=== PATIENT | female | born 1955 | race Caucasian/White ===

== ENCOUNTER → 2020-02-17 14:28 | Outpatient (BNVA) | payer MEDICARE, MEDICAID, SELFPAY | PROVIDERS: PCP Family Medicine; Referring Provider Family Medicine; Visit Provider Hospitalist | DX: J44.9 Chronic obstructive pulmonary disease, unspecified (principal); G47.33 Obstructive sleep apnea (adult) (pediatric); R05 Cough; Z99.89 Dependence on other enabling machines and devices | CPT/HCPCS: 99202; 99212 ==

== ENCOUNTER → 2020-04-27 14:39 | Outpatient (BNVA) | payer MEDICARE, MEDICAID, SELFPAY | PROVIDERS: PCP Family Medicine; Visit Provider Hospitalist | DX: J44.9 Chronic obstructive pulmonary disease, unspecified (principal); G47.33 Obstructive sleep apnea (adult) (pediatric); Z87.891 Personal history of nicotine dependence | CPT/HCPCS: 99212 ==

== ENCOUNTER → 2020-08-23 15:03 | Outpatient (BNVA) | payer MEDICARE, MEDICAID, SELFPAY | PROVIDERS: PCP Family Medicine; Visit Provider Hospitalist | DX: J45.40 Moderate persistent asthma, uncomplicated (principal); G47.33 Obstructive sleep apnea (adult) (pediatric); J44.9 Chronic obstructive pulmonary disease, unspecified | CPT/HCPCS: 99212 ==

== ENCOUNTER → 2020-11-01 15:05 | Outpatient (REF) | payer MEDICARE, MEDICAID, SELFPAY | LOC: HO.SL 15:05 | PROVIDERS: PCP Family Medicine; Visit Provider Hospitalist | DX: G47.33 Obstructive sleep apnea (adult) (pediatric) (principal) | CPT/HCPCS: 95806 ==

== ENCOUNTER → 2020-12-14 14:31 | Outpatient (BNVA) | payer MEDICARE, MEDICAID, SELFPAY | PROVIDERS: PCP Family Medicine; Visit Provider Hospitalist | DX: J45.40 Moderate persistent asthma, uncomplicated (principal); J44.9 Chronic obstructive pulmonary disease, unspecified; G47.33 Obstructive sleep apnea (adult) (pediatric) | CPT/HCPCS: 99212 ==

== ENCOUNTER → 2020-12-30 19:21 | Outpatient (REF) | payer MEDICARE, MEDICAID, SELFPAY | LOC: HO.SL 19:21 | PROVIDERS: Visit Provider Hospitalist | DX: G47.33 Obstructive sleep apnea (adult) (pediatric) (principal) | CPT/HCPCS: 95810 ==

== ENCOUNTER → 2021-02-15 14:25 | Outpatient (BNVA) | payer MEDICARE, MEDICAID, SELFPAY | PROVIDERS: PCP Family Medicine; Visit Provider Hospitalist | DX: J44.9 Chronic obstructive pulmonary disease, unspecified (principal); G47.33 Obstructive sleep apnea (adult) (pediatric) | CPT/HCPCS: 99212 ==

== ENCOUNTER 2021-03-11 14:05 | Outpatient (REF) | payer MEDICARE, MEDICAID, SELFPAY ==
--- NOTE | 2021-03-11 17:40 | PFT_ITS ---
Forced vital capacity, FEV1, [id number], and MVV are all normal. Post bronchodilator therapy, there is no significant change. Total lung capacity normal. Residual volume is slightly decreased. Diffusion capacity slightly decreased. CONCLUSION: Normal pulmonary function test except for decreased residual volume and slightly decreased diffusion capacity. These are probably related to exogenous obesity. MD BLACK Wilson/JANET / [phone]
== END 2021-03-11 14:06 | disposition home or self-care (01) ==
LOC: HO.RESP 14:05
PROVIDERS: Visit Provider Hospitalist
DX: J44.9 Chronic obstructive pulmonary disease, unspecified (principal); R06.00 Dyspnea, unspecified
CPT/HCPCS: 94060; 94727; 94729

== ENCOUNTER → 2021-05-28 14:33 | Outpatient (BNVA) | payer MEDICARE, MEDICAID, SELFPAY | PROVIDERS: PCP Family Medicine; Visit Provider Hospitalist | DX: J44.9 Chronic obstructive pulmonary disease, unspecified (principal); J45.909 Unspecified asthma, uncomplicated | CPT/HCPCS: 99212 ==

== ENCOUNTER → 2021-08-26 14:45 | Outpatient (BNVA) | payer MEDICARE, MEDICAID, SELFPAY | PROVIDERS: PCP Family Medicine; Visit Provider Hospitalist | DX: J44.9 Chronic obstructive pulmonary disease, unspecified (principal); R05.9 Cough, unspecified | CPT/HCPCS: 99212 ==

== ENCOUNTER → 2022-01-06 14:41 | Outpatient (BNVA) | payer MEDICARE, MEDICAID, SELFPAY | PROVIDERS: PCP Family Medicine; Visit Provider Hospitalist | DX: J44.9 Chronic obstructive pulmonary disease, unspecified (principal); R05.9 Cough, unspecified | CPT/HCPCS: 99212 ==

== ENCOUNTER → 2022-05-12 15:26 | Outpatient (BNVA) | payer MEDICARE, SELFPAY | PROVIDERS: PCP Family Medicine; Visit Provider Hospitalist | DX: J44.9 Chronic obstructive pulmonary disease, unspecified (principal); G47.33 Obstructive sleep apnea (adult) (pediatric); Z79.899 Other long term (current) drug therapy | CPT/HCPCS: 99212 ==

== ENCOUNTER 2022-11-13 15:38 | Outpatient (AMB) | payer MEDICARE, SELFPAY ==
--- NOTE | 2022-11-13 15:43 | A.OFFVIS_ITS ---
Intake Vital Signs 11/13/22 15:46 Height 5 ft 4 in Weight 310 lb BMI 53.2 Pulse 78 Pulse Source Pulse Oximeter Pulse Oximetry (%) 95 Oxygen Delivery Method Room Air Intake Visit Reasons: COPD Community Development Manager Required: No Allergies No Known Allergies Allergy (Verified 11/13/22 15:47) HPI HPI Comments History of Present Illness0 Details The patient is a 66-year-old woman with a known history of asthma, obstructive sleep apnea and morbid obesity. The patient has been having worsening respiratory symptoms with increasing cough chest congestion and wheezing. She has been using her nebulized therapy couple times a day and also continue to use her respiratory therapy as prescribed. Only getting partial resolution or symptoms. She was tested for COVID-19 which was negative. She denies any fevers or chills at this time. This point will go ahead and treat her for underlying asthma exacerbation. The patient also may have a lower respiratory infection such as bronchitis which is likely contributing to her exacerbation. In addition to continues to have daytime drowsiness. Will plan to do a sleep study. Her [place] score is elevated 12/24. She has had sleep apnea in the past. 08/23/2020 the patient is here for pulmonary follow-up visit. She is feeling better from a respiratory status. She has no longer wheezing. She has not required any more prednisone. She has not been using her rescue inhaler more than twice a week. Overall she is doing well. She continues to have daytime drowsiness. Her [place] score still elevated 12/24. She does benefit from CPAP therapy. She was being called to have her sleep study, but, she was concerned about not being vaccinated. Now she is fully vaccinated. 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 Once she gets her sleep study we can review together and then we activate her with a [employer]. The patient has had a diagnosis of sleep apnea for many years. She has been very compliant with the CPAP therapy in the past. 05/12/2022 the patient is here for a pulmonary follow-up visit. The patient is feeling better at this time. She was sick several weeks ago with flu-like symptom. She thought she was going to . She was very weak. She cannot do her activities of daily living. The patient had medications at home but she states that she was in thinking logically and she therefore did not take any medications. She was she is very tired. Slowly but surely the patient did improved. She is now back on a baseline. She continues use her current respiratory therapy. She did not take any prednisone or antibiotics during her episode. She did test negative for COVID-19. She believes she had RSV. The other issues that she has been running into that she has minimal to get her a nebulized solution for the nebulizer. We have sent multiple times to the pharmacy but she states the pharmacy does not improving it. I will resend the medicine and also request that her nurse follow-up with the prescription to make sure that she has adequate medications at home. 11/13/2022 the patient is here for pulmonary follow-up visit. The patient is not doing any better. She still complains of chest tightness and wheezing. No significant productive cough at this time she does not feel like she has infection. She has been using the Trelegy 200 and also has been on Daliresp. She has been using her nebulizer often. She has not use any prednisone although she does have full some at home. The patient had been using Singulair and loratadine but she ran out and therefore she has been off it. Therefore, she may be able to go back to her baseline when she goes back to her medications. But is not she can always take that short course of prednisone. Will go ahead and request a chest x-ray to better address if any other abnormalities are going on. In addition to that in view of her maximum respiratory therapy is still having symptoms with uncontrolled asthma will go ahead and request allergy testing to see if she is a candidate for biologic therapy. [facility] Medical History (Updated 11/13/22 @ 16:01 by Cornelius Gallardo MD) Abnormal chest x-ray with multiple lung nodules Asthma-COPD overlap syndrome Atopic dermatitis Chronic allergic rhinitis Cough BRIDGER (obstructive sleep apnea) Social History (Updated 02/15/21 @ 14:48 by GALILEA Garcia) Patient Tobacco Use Status: Former Tobacco user Tobacco use type: Cigarette Years Smoked: 20+ years Review of Systems Const Reports daytime sleepiness, Reports headache(s) and Denies night sweats ENT Denies change in voice, Reports headache(s), Denies lip swelling, Denies mouth pain, Reports nasal congestion, Reports nasal discharge and Denies tongue swelling Card Denies chest pain, Reports dyspnea and Reports dyspnea on exertion Resp Denies chest congestion, Reports cough, Reports dyspnea, Reports dyspnea on exertion and Reports wheezing GI Denies abdominal pain Musc Denies no additional complaints Neuro Denies Neuro-related abnormal movements and Reports headache(s) Psych Denies no additional complaints Andre/Lymph Denies easy bleeding and Denies lymphadenopathy Aller/Immun Denies lip swelling, Denies tongue swelling and Reports wheezing Physical Exam Vital Signs: Last Vital Signs Pulse 78 11/13/22 15:46 Pulse Ox 95 11/13/22 15:46 Oxygen Delivery Method Room Air 11/13/22 15:46 BMI result Body Mass Index 53.2 Const General: alert Neck Neck: Yes normal visual inspection, Yes full ROM and Yes no lymphadenopathy Chest Chest palpation & inspection: normal inspection of the chest Resp Auscultation: no crackles, no rales, no rhonchi, wheezes and diminished lung sounds Cardio Rate: regular rate Rhythm: regular rhythm Heart sounds: S1 normal heart sound present and S2 normal heart sound present GI Palpation (GI): Soft to palpation and nontender Auscultation: normal bowel sounds Skin General skin exam: rashes and/or lesions noted Assessment & Plan Assessment & Plan (1) Asthma-COPD overlap syndrome: Code(s): J44.9 - Chronic obstructive pulmonary disease, unspecified (2) Cough: Comment: Upper airway cough syndrome Code(s): R05 - Cough Plan Continue Trelegy inhaler Continue Daliresp Continue Singulair and claritin consider prednisone burst if no better continue Duoneb BID Short-acting beta agonist as needed labs / allergy testing ? Biologic therapy CXR Continue oxygen at 2 L at nighttime while sleeping Follow-up 3-4 month Orders: Orders Basic Metabolic Panel 11/13/22 J30.9 - Allergic rhinitis, unspecified, J45.909 - Unspecified asthma, uncomplicated, L20.9 - Atopic dermatitis, unspecified Rast Allergen 11/13/22 J30.9 - Allergic rhinitis, unspecified, J45.909 - Unspecified asthma, uncomplicated, L20.9 - Atopic dermatitis, unspecified Complete Blood Count Auto Diff 11/13/22 J30.9 - Allergic rhinitis, unspecified, J45.909 - Unspecified asthma, uncomplicated, L20.9 - Atopic dermatitis, unspecified Erythrocyte Sedimentation Rate 11/13/22 J30.9 - Allergic rhinitis, unspecified, J45.909 - Unspecified asthma, uncomplicated, L20.9 - Atopic dermatitis, unspecified XR chest 2V 11/13/22 R05 - Cough Medications: Changed From loratadine (Claritin) 10 mg PO DAILY 30 days 30 tabs 11RF J30.2 - Other seasonal allergic rhinitis, J45.909 - Unspecified asthma, uncomplicated To loratadine (Claritin) 10 mg PO DAILY 90 days 90 tabs 3RF J30.2 - Other seasonal allergic rhinitis, J45.909 - Unspecified asthma, uncomplicated Refilled montelukast 10 mg PO DAILY 90 tabs 3RF J45.909 - Unspecified asthma, uncomplicated roflumilast (Daliresp) 500 mcg PO DAILY 90 tabs 3RF Coding Level of Care Code Est Pt Level 4 (27471) Diagnoses Asthma-COPD overlap syndrome J44.9 Cough R05 Time Spent (min) 19
[2022-11-13 15:46] VITALS: PULSE 78; O2SAT 95; BMI 53.2
== END 2022-11-13 16:06 | disposition home or self-care (01) ==
PROVIDERS: PCP Family Medicine; Visit Provider Hospitalist
DX: J44.9 Chronic obstructive pulmonary disease, unspecified (principal); R05.9 Cough, unspecified
CPT/HCPCS: 99214

== ENCOUNTER 2022-11-13 15:38 | Outpatient (REF) | payer MEDICARE, SELFPAY ==
--- NOTE | ~2022-11-13 | XR_ITS ---
EXAMINATION: XR CHEST CLINICAL INFORMATION: Cough. COMPARISON: None available. TECHNIQUE: 2 views of the chest were obtained. FINDINGS: Prominent cardiomediastinal silhouette with central vasculature engorgement. Mild diffuse interstitial thickening. No pleural effusion or pneumothorax. No acute osseous findings. Visualized upper abdomen is within normal limits. XR/XR chest 2V IMPRESSION: 1. Mild interstitial thickening is indeterminate and could be associated with some degree of pulmonary edema or an atypical infectious/inflammatory process of the small airways. 2. No focal consolidation. 3. No pleural effusion or pneumothorax.
== END 2022-11-13 15:39 | disposition home or self-care (01) ==
LOC: HO.XRAY 15:38
PROVIDERS: PCP Family Medicine; Visit Provider Hospitalist
DX: J44.9 Chronic obstructive pulmonary disease, unspecified (principal); G47.33 Obstructive sleep apnea (adult) (pediatric); E66.01 Morbid (severe) obesity due to excess calories; J30.9 Allergic rhinitis, unspecified; L20.9 Atopic dermatitis, unspecified
CPT/HCPCS: 71046; 99212

== ENCOUNTER 2023-02-12 15:44 | Outpatient (AMB) | payer MEDICARE, SELFPAY ==
[2023-02-12 15:48] VITALS: PULSE 78; O2SAT 92; BMI 51.5
--- NOTE | 2023-02-12 15:48 | A.OFFVIS_ITS ---
Intake Vital Signs 02/12/23 15:48 Height 5 ft 4 in Weight 300 lb BMI 51.5 Pulse 78 Pulse Source Pulse Oximeter Pulse Oximetry (%) 92 Oxygen Delivery Method Room Air Intake Visit Reasons: COPD Staple Side Laster Required: No Allergies No Known Allergies Allergy (Verified 02/12/23 15:49) HPI HPI Comments History of Present Illness0 Details The patient is a 67-year-old woman with a known history of asthma, obstructive sleep apnea and morbid obesity. The patient has been having worsening respiratory symptoms with increasing cough chest congestion and wheezing. She has been using her nebulized therapy couple times a day and also continue to use her respiratory therapy as prescribed. Only getting partial resolution or symptoms. She was tested for COVID-19 which was negative. She denies any fevers or chills at this time. This point will go ahead and treat her for underlying asthma exacerbation. The patient also may have a lower respiratory infection such as bronchitis which is likely contributing to her exacerbation. In addition to continues to have daytime drowsiness. Will plan to do a sleep study. Her [place] score is elevated 12/24. She has had sleep apnea in the past. 08/23/2020 the patient is here for pulmo nary follow-up visit. She is feeling better from a respiratory status. She has no longer wheezing. She has not required any more prednisone. She has not been using her rescue inhaler more than twice a week. Overall she is doing well. She continues to have daytime drowsiness. Her Morris score still elevated 12/24. She does benefit from CPAP therapy. She was being called to have her sleep study, but, she was concerned about not being vaccinated. Now she is fully vaccinated. 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 Once she gets her sleep study we can review together and then we activate her with a [employer]. The patient has had a diagnosis of sleep apnea for many years. She has been very compliant with the CPAP therapy in the past. 05/12/2022 the patient is here for a pulmonary follow-up visit. The patient is feeling better at this time. She was sick several weeks ago with flu-like symptom. She thought she was going to . She was very weak. She cannot do her activities of daily living. The patient had medications at home but she states that she was in thinking logically and she therefore did not take any medications. She was she is very tired. Slowly but surely the patient did improved. She is now back on a baseline. She continues use her current respiratory therapy. She did not take any prednisone or antibiotics during her episode. She did test negative for COVID-19. She believes she had RSV. The other issues that she has been running into that she has minimal to get her a nebulized solution for the nebulizer. We have sent multiple times to the pharmacy but she states the pharmacy does not improving it. I will resend the medicine and also request that her nurse follow-up with the prescription to make sure that she has adequate medications at home. 11/13/2022 the patient is here for pulmona ry follow-up visit. The patient is not doing any better. She still complains of chest tightness and wheezing. No significant productive cough at this time she does not feel like she has infection. She has been using the Trelegy 200 and also has been on Daliresp. She has been using her nebulizer often. She has not use any prednisone although she does have full some at home. The patient had been using Singulair and loratadine but she ran out and therefore she has been off it. Therefore, she may be able to go back to her baseline when she goes back to her medications. But is not she can always take that short course of prednisone. Will go ahead and request a chest x-ray to better address if any other abnormalities are going on. In addition to that in view of her maximum respiratory therapy is still having symptoms with uncontrolled asthma will go ahead and request allergy testing to see if she is a candidate for biologic therapy. 02/12/2023 the patient is here for a pulmonary follow-up visit. Overall the patient is feeling better finally. Has been continue to use her Trelegy with good effect. She did not get the blood work. Chest x-ray demonstrates some evidence of airway disease suggesting bronchitis. Pulmonary in the right hemithorax. The patient does not feel like she needs any further antibiotics or prednisone at this time. Did request she can try like an Acapella valve to help her mucus secretions out her lungs. She should inform the chest physical therapy once or twice a day. She will continue with current respiratory medications. Ultimately she will have her repeat x-ray in 4 months prior to the next visit. If his symptoms worsen she is to call for an earlier assessment. [facility] Medical History (Updated 02/12/23 @ 23:45 by Cornelius Gallardo MD) Atopic dermatitis Chronic allergic rhinitis Abnormal chest x-ray with multiple lung nodules Cough BRIDGER (obstructive sleep apnea) Asthma-COPD overlap syndrome Social History (Updated 02/15/21 @ 14:48 by Zeinab Jones Bakari) Patient Tobacco Use Status: Former Tobacco user Tobacco use type: Cigarette Years Smoked: 20+ years Review of Systems Const Reports daytime sleepiness, Denies headache(s) and Denies night sweats ENT Denies change in voice, Denies headache(s), Denies lip swelling, Denies mouth pain, Reports nasal congestion, Reports nasal discharge and Denies tongue swelling Card Denies chest pain and Reports dyspnea on exertion Resp Denies chest congestion, Reports cough, Reports dyspnea on exertion and Denies wheezing GI Denies abdominal pain Musc Denies no additional complaints Neuro Denies Neuro-related abnormal movements and Denies headache(s) Psych Denies no additional complaints Andre/Lymph Denies easy bleeding and Denies lymphadenopathy Aller/Immun Denies lip swelling, Denies tongue swelling and Denies wheezing Physical Exam Vital Signs: Last Vital Signs Pulse 78 02/12/23 15:48 Pulse Ox 92 02/12/23 15:48 Oxygen Delivery Method Room Air 02/12/23 15:48 BMI result Body Mass Index 51.5 Const General: alert Neck Neck: Yes normal visual inspection, Yes full ROM and Yes no lymphadenopathy Chest Chest palpation & inspection: normal inspection of the chest Resp Effort & Inspection: normal respiratory effort Auscultation: no crackles, no rales, no rhonchi, no wheezes and diminished lung sounds Cardio Rate: regular rate Rhythm: regular rhythm Heart sounds: S1 normal heart sound present and S2 normal heart sound present GI Palpation (GI): Soft to palpation and nontender Auscultation: normal bowel sounds Skin General skin exam: rashes and/or lesions noted Assessment & Plan Assessment & Plan (1) Asthma-COPD overlap syndrome: Code(s): J44.9 - Chronic obstructive pulmonary disease, unspecified (2) Cough: Comment: Upper airway cough syndrome Code(s): R05 - Cough Qualifiers: Cough type: chronic Qualified Code(s): R05.3 - Chronic cough Plan Continue Trelegy inhaler Continue Daliresp Continue Singulair and claritin Acapella valve for CPT continue Duoneb BID Short-acting beta agonist as needed labs / allergy testing ? Biologic therapy CXR in 4 months Continue oxygen at 2 L at nighttime while sleeping Follow-up 4 month Orders: Orders XR chest 2V Today J44.9 - Chronic obstructive pulmonary disease, unspecified Coding Level of Care Code Est Pt Level 4 (31256) Diagnoses Asthma-COPD overlap syndrome J44.9 Chronic cough R05.3 Cough type: chronic Time Spent (min) 16
== END 2023-02-12 16:05 | disposition home or self-care (01) ==
PROVIDERS: PCP Family Medicine; Visit Provider Hospitalist
DX: J44.9 Chronic obstructive pulmonary disease, unspecified (principal); R05.3 Chronic cough
CPT/HCPCS: 99214

== ENCOUNTER → 2023-02-12 15:44 | Outpatient (BNVA) | payer MEDICARE, SELFPAY | PROVIDERS: PCP Family Medicine; Visit Provider Hospitalist | DX: J44.9 Chronic obstructive pulmonary disease, unspecified (principal); R05.3 Chronic cough; Z79.899 Other long term (current) drug therapy; Z99.81 Dependence on supplemental oxygen | CPT/HCPCS: 99212 ==